=== PATIENT | male | born 1980 | race Caucasian/White ===

== ENCOUNTER → 2024-05-06 07:26 | Day surgery (SDC) | payer OTHER, SELFPAY | LOC: GI 07:26 | PROVIDERS: ATTENDING PHYSICIAN Internal Medicine Gastroenterology | DX: Z12.11 Encounter for screening for malignant neoplasm of colon (principal); K64.8 Other hemorrhoids; K62.1 Rectal polyp | CPT/HCPCS: 45380; 88305 ==